=== PATIENT | female | born 1970 | race Caucasian/White ===

== ENCOUNTER 2017-11-29 11:32 | Emergency (ER) | payer SELFPAY ==
[2017-11-29] MEDS ORDERED: LIDOCAINE 5% (700 MG) TRANSDERMAL ADH..PATCH TP ONE (12:34)
[2017-11-29] MEDS ORDERED: DEXAMETHASONE SOD PHOS INJ 10 MG/1 ML VIAL IM ONE (12:34)
--- NOTE | 2017-11-29 12:40 | ER Document Report ---
ED Neck/Back Problem - General Chief Complaint: Back Pain Stated Complaint: FALL/BACK PAIN Time Seen by Provider: 11/29/17 12:18 Mode of Arrival: Ambulatory Information source: Patient Notes: 47-year-old female presented ED for complaint of bruising to the left thigh and increasing pain in the low back since she fell to the porch floor yesterday. She states it hurts to move or walk due to the pain. Patient is alert and oriented respirations are regular need unlabored. Patient is able to speak in full even sentences. Patient states her home medicines are lisinopril 10 mg daily by mouth, Ultram 50 mg nightly by mouth, Neurontin 400 mg daily by mouth, Zoloft 25 mg daily by mouth, and Soma 350 mg 3 times a day as needed. TRAVEL OUTSIDE OF THE [place] IN LAST 30 DAYS: No - HPI Patient complains to provider of: Lower back Onset: Other Where: Home, Outdoors Onset: Chronic Timing: Worse Quality of pain: Sharp Severity: Severe Pain Level: 5 Context: Other - Fell to the floor on the porch yesterday Recent injury: Yes Associated symptoms: Like prior neck/back pain, Radiation to leg, Lower back pain. denies: Fever, Incontinence, Motor loss, Numbness/tingling, Radiation to arm, Radiation to chest, Sensory loss, Sweaty, Unable to urinate, Upper back pain Exacerbated by: Movement of trunk, Sitting position Relieved by: Nothing Similar symptoms previously: Yes Recently seen / treated by doctor: No - Related Data Allergies/Adverse Reactions: ketorolac tromethamine [From Toradol] Allergy (Verified 01/26/16 13:57) morphine [Morphine] Allergy (Verified 01/26/16 13:57) Anxiety naproxen [Naproxen] Allergy (Verified 01/26/16 13:57) Anxiety Past Medical History - General Information source: Patient - Social History Smoking Status: Current Every Day Smoker Cigarette use (# per day): Yes - One third pack per day Chew tobacco use (# tins/day): No Smoking Education Provided: Yes - 4 minutes Frequency of alcohol use: None Drug Abuse: None Lives with: Family Family History: Reviewed & Not Pertinent Patient has suicidal ideation: No Patient has homicidal ideation: No - Past Medical History Cardiac Medical History: Reports: Hx Hypertension Pulmonary Medical History: Reports: None EENT Medical History: Reports: None Neurological Medical History: Reports: None Endocrine Medical History: Reports: None Renal/ Medical History: Reports: None Malignancy Medical History: Reports: None GI Medical History: Reports: None Musculoskeltal Medical History: Reports Hx Arthritis, Reports Hx Musculoskeletal Deformity, Reports Other - Back pain Skin Medical History: Reports None Psychiatric Medical History: Reports: Hx Anxiety, Hx Depression Traumatic Medical History: Reports: None Infectious Medical History: Reports: None Past Surgical History: Reports: Hx Appendectomy, Hx Section, Hx Cholecystectomy - Immunizations Immunizations up to date: Yes Hx Diphtheria, Pertussis, Tetanus Vaccination: Yes Review of Systems - Review of Systems Constitutional: No symptoms reported EENT: No symptoms reported Cardiovascular: No symptoms reported Respiratory: No symptoms reported Gastrointestinal: No symptoms reported. denies: Vomiting, Constipation, Fecal incontinence Genitourinary: No symptoms reported, Incontinence, Retention Female Genitourinary: No symptoms reported Musculoskeletal: Back pain, Muscle pain, Muscle stiffness Skin: No symptoms reported Hematologic/Lymphatic: No symptoms reported Neurological/Psychological: No symptoms reported. denies: Gait changes, Loss of power, Paralysis -: Yes All other systems reviewed and negative Physical Exam - Vital signs Vitals: Temp Pulse Resp BP Pulse Ox 99.3 F 74 20 170/85 H 100 11/29/17 11:49 11/29/17 11:49 11/29/17 11:49 11/29/17 11:49 11/29/17 11:49 Interpretation: Normal - General General appearance: Appears well, Alert - HEENT Head: Normocephalic, Atraumatic Eyes: Normal Pupils: PERRL - Respiratory Respiratory status: No respiratory distress Chest status: Nontender Breath sounds: Normal Chest palpation: Normal - Cardiovascular Rhythm: Regular Heart sounds: Normal auscultation Murmur: No - Abdominal Inspection: Normal Distension: No distension Bowel sounds: Normal Tenderness: Nontender Organomegaly: No organomegaly - Back Back: Normal, Tender, Vertebra tenderness. No: Deformity/step-off, CVA tenderness, Scars, Scoliosis, Wounds - Extremities General upper extremity: Normal inspection, Nontender, Normal color, Normal ROM , Normal temperature General lower extremity: Normal inspection, Nontender, Normal color, Normal ROM , Normal temperature, Normal weight bearing. No: Aurelia's sign - Neurological Neuro grossly intact: Yes Cognition: Normal Orientation: AAOx4 Jak Coma Scale Eye Opening: Spontaneous Barney Coma Scale Verbal: Oriented Jak Coma Scale Motor: Obeys Commands Jak Coma Scale Total: 15 Speech: Normal Cranial nerves: Normal Cerebellar coordination: Normal Motor strength normal: LUE, RUE, LLE, RLE Additional motor exam normals: Equal internship Babinski reflex: Normal (flexor plantar) Sensory: Normal Knee - Reflex grade: 2 = Normal Ankle - Reflex grade: 2 = Normal - Psychological Associated symptoms: Normal affect, Normal mood - Skin Skin Temperature: Warm Skin Moisture: Dry Skin Color: Normal Course - Re-evaluation Re-evalutation: 11/29/17 13:45 After performing a Medical Screening Examination, I estimate there is LOW risk for EXPANDING OR RUPTURED ABDOMINAL AORTIC ANEURYSM, CAUDA EQUINA SYNDROME, EPIDURAL MASS LESION, or HERNIATED DISK CAUSING SEVERE SPINAL STENOSIS, thus I consider the discharge disposition reasonable. I have reevaluated this patient multiple times and no significant life threatening changes are noted. The patient and I have discussed the diagnosis and risks, and we agree with discharging home and close follow-up. We also discussed returning to the Emergency Department immediately if new or worsening symptoms occur with the understanding that symptoms and presentations can change. We have discussed the symptoms which are most concerning (e.g., saddle anesthesia, urinary or bowel incontinence or retention, changing or worsening pain) that necessitate immediate return. X-rays discussed with patient. Written report given to patient. Patient was treated with Lidoderm patch, steroids, and discharged home with prescription for Flexeril. Patient to follow-up with her doctor on the as is scheduled. Patient to continue taking her chronic pain management medicines. - Vital Signs Vital signs: Temp Pulse Resp BP Pulse Ox 98.4 F 71 16 148/99 H 100 11/29/17 14:07 11/29/17 14:07 11/29/17 14:07 11/29/17 14:07 11/29/17 14:07 - Diagnostic Test Radiology reviewed: Image reviewed, Reports reviewed Discharge - Discharge Clinical Impression: Exacerbation of chronic back pain Fall Qualifiers: Encounter type: initial encounter Qualified Code(s): W19.XXXA - Unspecified fall, initial encounter Condition: Stable Disposition: HOME, SELF-CARE Additional Instructions: Chronic Pain Control Stress, inactivity, and depression make pain more severe regardless of the cause of the pain. Stress and poor physical condition can cause pain such as headaches and backache. Relaxation: Rest in a quiet place with your eyes closed for 20 minutes twice daily. Concentrate on a pleasant image, or simply "feel" your breathing. Clear your mind. Stress management: Deal with your "stressors." Either take action, or eliminate the stressor from your life. Don't let things hang over you. Accept those things you can't change. Nutrition: Eat small, balanced meals -- don't skip, don't overeat. Meals should be high-carbohydrate, low-sugar, low-fat. Exercise: Exercise helps painful conditions and eases stress. Get 30 minutes of moderate exercise, five days a week. Do an activity that does not flare your pain. Precautions: Pain which continues to disrupt daily activities, or which changes in nature, requires a medical evaluation. Pain Clinic referral is available. We do not manage chronic pain in the Emergency Department. We will try to appropriately help you through an acute flare of your chronic painful condition , but for on-going chronic pain that does not improve, you will need to see your private doctor or spray i painter. We do not provide repeated medication management of chronic painful conditions. If you wish, we can provide the name of local pain management physicians. Chronic Back Pain Chronic back pain (pain persisting longer than three months) is a common problem. A medical evaluation can look for herniated disc, arthritis, osteoporosis, tumors, and infections. But at least half the time, there's no obvious treatable cause. Anxiety and depression tend to worsen back pain. Ibuprofen or other anti-inflammatory medicine can help. A heating pad, used for 15-20 minutes at a time, can ease pain. For this type of back pain, narcotic medicines should be avoided. Muscle relaxers are rarely helpful unless you're having spasms. Activity is important. Find an aerobic exercise program that your back can tolerate. Too much rest makes back pain worse. Specific back exercises are usually prescribed to strengthen the back and abdominal muscles. Often, a physical therapist can help. Avoid heavy lifting, working while bent over, or standing with both knees straight. Most back pain patients do better with a firm mattress. If new symptoms of a "herniated disc" (radiation of pain, numbness, or tingling down the back of the leg or weakness in the leg) occur, you should be re-examined. STEROID MEDICATION: You have been given a medicine of the cortisone/steroid class. This medication is used to control inflammation or allergy. It is usually only given for a short period of time, until the acute process subsides. There are usually no side effects from short-term use of cortisone-like medications. Some persons feel an increased sense of well-being and are not sleepy at bedtime. Long-term use of cortisone medications is best avoided, unless required for a severe condition. If your condition does not remit, or relapses after the course of corticosteroid medication, you should consult your physician. Stretching Exercises for the Back The physician has recommended that you begin stretching exercises for your back. These are often used even while the back is painful. However, you should notify the physician if the activities seem to increase your pain. PELVIC TILT: Lie flat on your back with knees bent. Tighten your stomach and buttock muscles so it flattens your lower back against the floor. Hold 10 seconds. Repeat 10 times, twice daily. KNEE RAISE: Lying on the back with knees bent, raise one knee to your chest, then the other. Hold both knees against the chest 10 seconds, then lower one knee at a time. Repeat 10 times, twice daily. PARTIAL TRUNK RAISE: Lie face down, arms at your sides. Keeping your waist on the floor, use your arms raise your chest up. Support yourself on your elbows for 30 seconds. Repeat twice daily, increasing the time to two minutes as you recover. MUSCLE RELAXERS: Muscle relaxing medications are usually prescribed for acute muscle spasm or injury to the neck and back. They are often combined with antiinflammatory pain medication for increased relief. You may stop the muscle relaxer when the pain and stiffness have improved. Start the medication again if spasms recur. Muscle relaxers may cause drowsiness, especially with the first dose. Do not operate machinery or drive while under the effects of the medication. Most muscle relaxers last up to 24 hours. Do not combine the medication with alcohol. ICE PACKS: Apply ice packs frequently against the painful area. Many different schedules are recommended, such as "20 minutes on, 20 minutes off" or "one hour ice, two hours rest." If you need to work, you may need to go longer between ice treatments. You should plan to have the area ice packed AT LEAST one fourth of the time. The ice should be applied over the wrap, tape, or splint, or over a layer of cloth -- not directly against the skin. Some ice bags have a built-in cloth and can be put directly on the skin. WARM PACKS: After approximately two days, apply gentle heat (such as a heating pad or hot water bottle) for about 20 to 30 minutes about every two hours -- at least four times daily. Warmth and elevation will help you make a more rapid recovery , and will ease the pain considerably. Do not use HOT heat, and never apply heat for longer than 30 minutes. The continuous heat can invisibly damage skin and muscles -- even when no burn is seen on the surface. Damaged muscles can make you MORE sore. FOLLOW-UP CARE: If you have been referred to a physician for follow-up care, call the physician s office for an appointment as you were instructed or within the next two days. If you experience worsening or a significant change in your symptoms, notify the physician immediately or return to the Emergency Department at any time for re-evaluation. Prescriptions: Cyclobenzaprine HCl [Flexeril 10 mg Tablet] 10 mg PO TIDP PRN #15 tab PRN Reason: Forms: Elevated Blood Pressure, Smoking Cessation Education Referrals: SONA MCWILLIAMS MD [Primary Care Provider] - Follow up as needed
--- NOTE | 2017-11-29 13:20 | RADIOLOGY REPORT (SQ) ---
EXAM DESCRIPTION: L SPINE WHOLE COMPLETED DATE/TIME: 11/29/2017 12:54 pm REASON FOR STUDY: pain low back after falling COMPARISON: Three-way abdomen 08/06/2015 Lumbar spine five views 06/22/2016 NUMBER OF VIEWS: Five views including obliques. TECHNIQUE: AP, lateral, oblique, and sacral radiographic images acquired of the lumbar spine. LIMITATIONS: None. FINDINGS: MINERALIZATION: Normal. SEGMENTATION: Transitional anatomy. Tiny L5-S1 disc space. Four well-developed lumbar vertebral bod ies are present ALIGNMENT: Normal. VERTEBRAE: Maintained height. No fracture or worrisome bone lesion. DISCS: Preserved height. No significant osteophytes or end plate irregularity. POSTERIOR ELEMENTS: Pedicles and facets are intact. No pars defect or posterior arch defects. Facet arthropathy at L3-4 and L4-5 bilaterally. HARDWARE: None in the spine. PARASPINAL SOFT TISSUES: Normal. PELVIS: Intact as visualized. No fractures or worrisome bone lesions. SI joints intact. 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 L3-4 and L4-5 facet arthropathy. TECHNICAL DOCUMENTATION: JOB ID: [id number]- All Rights Reserved Reading location - IP/workstation name: [email or web address]
[2017-11-29 14:12] VITALS: BP 148/99
== END 2017-11-29 14:10 | disposition home or self-care (01) ==
LOC: ER 11:32
DX: M54.5 Low back pain (principal); W17.89XA Other fall from one level to another, initial encounter; Y92.008 Other place in unspecified non-institutional (private) residence as the place of occurrence of the external cause; G89.29 Other chronic pain; I10 Essential (primary) hypertension; M48.9 Spondylopathy, unspecified; F17.210 Nicotine dependence, cigarettes, uncomplicated; Z71.6 Tobacco abuse counseling; Z79.899 Other long term (current) drug therapy; Z79.891 Long term (current) use of opiate analgesic; Z88.5 Allergy status to narcotic agent; Z88.8 Allergy status to other drugs, medicaments and biological substances
CPT/HCPCS: 99406; 99283; 96372; 72110; J1100

== ENCOUNTER 2018-01-04 10:04 | Emergency (ER) | payer SELFPAY ==
[2018-01-04] MEDS ORDERED: HYDROCODONE/ACETAMINOPHEN 10-325 MG TABLET PO ONE (11:01)
--- NOTE | 2018-01-04 11:08 | ER Document Report ---
ED Hand/Wrist Injury - General Chief Complaint: Thumb Injury Stated Complaint: THUMB INJURY Time Seen by Provider: 01/04/18 10:30 Mode of Arrival: Ambulatory Information source: Patient Notes: 37-year-old female presented to ED for complaint of left thumb pain. She states she was trying to get up out of bed and put her hand down leaned on her thumb and the thumb bent backwards causing an injury bruising and swelling. She states she does not have any history of any injuries to this hand. She is tearful while discussing this injury. She is alert and oriented respirations regular and unlabored speaks with full sentences and walks with a even steady gait. TRAVEL OUTSIDE OF THE [place] IN LAST 30 DAYS: No - HPI Injury to: Thumb Onset: This morning Where: Home, Indoors Timing: Still present Quality of pain: Throbbing Severity: Severe Pain Level: 5 Context: Swelling, Other - Thumb backwards - Related Data Allergies/Adverse Reactions: ketorolac tromethamine [From Toradol] Allergy (Verified 01/04/18 10:06) morphine [Morphine] Allergy (Verified 01/04/18 10:06) Anxiety naproxen [Naproxen] Allergy (Verified 01/04/18 10:06) Anxiety Past Medical History - General Information source: Patient - Social History Smoking Status: Current Some Day Smoker Cigarette use (# per day): No Chew tobacco use (# tins/day): No Smoking Education Provided: No Frequency of alcohol use: None Drug Abuse: None Lives with: Family Family History: Reviewed & Not Pertinent Patient has suicidal ideation: No Patient has homicidal ideation: No - Past Medical History Cardiac Medical History: Reports: Hx Hypertension Pulmonary Medical History: Reports: None EENT Medical History: Reports: None Neurological Medical History: Reports: None Endocrine Medical History: Reports: Hx Diabetes Mellitus Type 2 Renal/ Medical History: Reports: None Malignancy Medical History: Reports: None GI Medical History: Reports: None Musculoskeltal Medical History: Reports Hx Arthritis, Reports Hx Musculoskeletal Deformity Skin Medical History: Reports None Psychiatric Medical History: Reports: Hx Anxiety, Hx Depression Traumatic Medical History: Reports: None Surgical Hx: Negative Past Surgical History: Reports: Hx Appendectomy, Hx Section, Hx Cholecystectomy - Immunizations Immunizations up to date: Yes Hx Diphtheria, Pertussis, Tetanus Vaccination: Yes Review of Systems - Review of Systems Musculoskeletal: Other - Injury to left thumb when she went to get up out of bed she pushed her thumb into the mattress and her thumb bent completely backwards causing pain swelling and bruising to the left thumb Physical Exam - Vital signs Vitals: Temp Pulse Resp BP Pulse Ox 98.6 F 67 18 158/84 H 100 01/04/18 10:09 01/04/18 10:09 01/04/18 10:01/04/18 10:01/04/18 10:09 - Extremities General upper extremity: Normal color, Normal ROM, Normal temperature General lower extremity: Normal inspection, Nontender, Normal color, Normal ROM , Normal temperature, Normal weight bearing. No: Aurelia's sign Hand: Tender, Ecchymosis, No evidence of human bite, No evidence of FB, Swelling , Other - Injury to left thumb when she went to get up out of bed she pushed her thumb into the mattress and her thumb bent completely backwards causing pain swelling and bruising to the left thumb. No: Abrasion, Deformity, Dislocation, Instability, Laceration, Nail injury, Tendon deficit Course - Re-evaluation Re-evalutation: 01/04/18 11:31 X-rays discussed with patient and . Written report of x-rays given to patient to follow-up with her primary doctor. Finger splint was applied to the thumb for comfort. Patient was instructed on use of elevation and ice and Tylenol. Patient was given one [place] while in the emergency room due to her pain. She was told to follow-up with her primary doctor if she needed any more narcotics. Patient and verbalized understanding of discharge instructions and agreement with treatment plan. - Vital Signs Vital signs: Temp Pulse Resp BP Pulse Ox 98.6 F 67 18 158/84 H 100 01/04/18 10:01/04/18 10:01/04/18 10:01/04/18 10:01/04/18 10:09 - Diagnostic Test Radiology reviewed: Image reviewed, Reports reviewed Procedures - Immobilization Left Finger Thumb Time completed: 11:25 Immobilizer type: Finger protection Performed by: PCT Post-Proc Neuro Vasc Exam: Normal Alignment checked and good: Yes Discharge - Discharge Clinical Impression: Left thumb sprain Qualifiers: Encounter type: initial encounter Sprain of finger site: unspecified site Qualified Code(s): S6.602S - Unspecified sprain of left thumb, initial encounter Condition: Stable Disposition: HOME, SELF-CARE Additional Instructions: SPRAIN: Your injury is a sprain. A sprain results from stretching or tearing of the ligaments, usually from a twisting injury. The ligaments will require time and protection in order to heal properly. Many sprains are quite disabling and should be taken seriously. The usual initial treatment of sprains is cold packs, elevation, and rest of the injured area. Your physician has assessed the seriousness of your ligament injury, and has outlined a treatment plan. Understand that this treatment may change, depending on how you progress. If a re-examination was recommended, it is important that you follow up as instructed. Call the doctor any time if there is severe pain, numbness, or loss of function in the injured area. SPLINT PRECAUTIONS: A splint has been placed. This will protect the area while healing begins. Your problem does NOT normally require a cast. It MUST, however, be held still! Keep the splint on ALL THE TIME until instructed to remove it by the doctor. As you begin to use the area, be careful. You shouldn't do anything which causes discomfort -- you may disturb the injury even with the splint in place. After the initial period of rest and elevation, if splint does not prevent pain when you move, come back. You may require placement of a different splint , or a cast. If there is unexpected severe pain, or numbness, discoloration, or swelling beyond the splint, you should return at once. If you feel that the splint has broken or become loose, come back. ICE & ELEVATION: Apply ice packs frequently against the painful area. Many different schedules are recommended, such as "20 minutes on, 20 minutes off" or "one hour ice, two hours rest." If you need to work, you may need to go longer between ice treatments. You should plan to have the area ice packed AT LEAST one- fourth of the time. The ice should be applied over the wrap, tape, or splint, or over a layer of cloth -- not directly against the skin. Some ice bags have a built-in cloth and can be put directly on the skin. Your injured part should be elevated as much as possible over the next 48 hours. Try to keep the injury above the level of the heart. Avoid use of the injured area. Elevation and rest will decrease the swelling. ORAL NARCOTIC MEDICATION: You have been given a norco for pain control today no prescription will be sent home. This medication is a narcotic. It's best taken with food, as nausea can result if taken on an empty stomach. Don't operate machinery or drive within six hours of taking this medication. Do not combine this medicine with alcohol, or with any medication which can cause sedation (such as cold tablets or sleeping pills) unless you get permission from the physician. Narcotics tend to cause constipation. If possible, drink plenty of fluids and eat a diet high in fiber and fruits. Please be aware that prescription narcotics also have the potential for abuse. People become addicted to these medications because of the general sense of wellbeing that they induce. This feeling along with a significant reduction in tension, anxiety, and aggression provides a stimulating seductive quality to these drugs. Once your pain is under control, we encourage you to discard your unused narcotics. FOLLOW-UP CARE: If you have been referred to a physician for follow-up care, call the physician s office for an appointment as you were instructed or within the next two days. If you experience worsening or a significant change in your symptoms, notify the physician immediately or return to the Emergency Department at any time for re-evaluation. Forms: Smoking Cessation Education Referrals: SONA MCWILLIAMS MD [Primary Care Provider] - Follow up tomorrow
--- NOTE | 2018-01-04 11:17 | RADIOLOGY REPORT (SQ) ---
EXAM DESCRIPTION: HAND LEFT 3 VIEWS COMPLETED DATE/TIME: 01/04/2018 10:51 am REASON FOR STUDY: thumb injury COMPARISON: None. EXAM PARAMETERS: NUMBER OF VIEWS: Three views. TECHNIQUE: AP, lateral and oblique radiographic images acquired of the left hand. LIMITATIONS: None. FINDINGS: MINERALIZATION: Normal. BONES: No acute fracture or dislocation. No worrisome bone lesions. JOINTS: No effusions. SOFT TISSUES: No soft tissue swelling. No foreign body. OTHER: No other significant finding. IMPRESSION: NEGATIVE STUDY OF THE LEFT HAND. NO RADIOGRAPHIC EVIDENCE OF ACUTE INJURY. TECHNICAL DOCUMENTATION: JOB ID: [id number] [employer]- All Rights Reserved Reading location - IP/workstation name: [email or web address]
[2018-01-04 11:29] VITALS: BP 150/86
== END 2018-01-04 11:30 | disposition home or self-care (01) ==
LOC: ER 10:04
DX: S63.602A Unspecified sprain of left thumb, initial encounter (principal); X50.0XXA Overexertion from strenuous movement or load, initial encounter; Y92.003 Bedroom of unspecified non-institutional (private) residence as the place of occurrence of the external cause; F17.200 Nicotine dependence, unspecified, uncomplicated; I10 Essential (primary) hypertension; E11.9 Type 2 diabetes mellitus without complications; Z88.6 Allergy status to analgesic agent; Z90.49 Acquired absence of other specified parts of digestive tract
CPT/HCPCS: 99283

== ENCOUNTER 2018-08-02 09:51 | Emergency (ER) | payer SELFPAY ==
[2018-08-02 10:25] VITALS: BP 134/76
[2018-08-02] MEDS ORDERED: HYDROMORPHONE HCL INJ/PF 2 MG/ML AMPULE IM ONE (10:56)
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
[2018-08-02] MEDS ORDERED: BACITRACIN ZINC OINTMENT 15 GM TP ONE (11:32)
== END 2018-08-02 11:59 | disposition home or self-care (01) ==
LOC: ER 09:51
DX: T25.321A Burn of third degree of right foot, initial encounter (principal); X12.XXXA Contact with other hot fluids, initial encounter; I10 Essential (primary) hypertension; E11.9 Type 2 diabetes mellitus without complications; F17.200 Nicotine dependence, unspecified, uncomplicated; Z90.49 Acquired absence of other specified parts of digestive tract
CPT/HCPCS: 99283; 96372; J3490; J1170

== ENCOUNTER 2020-01-28 15:29 | Emergency (ER) | payer SELFPAY ==
[2020-01-28] MEDS ORDERED: GLUCAGON,HUMAN RECOMB 1 MG INJ IM ONE (15:38)
--- NOTE | 2020-01-28 15:42 | ER Document Report ---
ED Medical Screen (RME) - General Chief Complaint: Choked/Choking Stated Complaint: CHOKING Time Seen by Provider: 01/28/20 15:35 Primary Care Provider: SONA MCWILLIAMS MD [Primary Care Provider] - Follow up as needed Mode of Arrival: Medic Information source: Patient Notes: HPI; 49-year-old female past medical history significant for hypertension presents to the emergency room after choking on a chicken popper that got stuck in her throat at home. States tried doing the Heimlich maneuver at home without relief. States she is unable to swallow. Has been vomiting. Is able to talk in full sentences. No history of previous foreign bodies. PE: Alert and oriented x3. Moderate distress noted. Lungs: Clear to auscultation without rales, rhonchi, wheezes. Heart: Regular rate and rhythm without murmurs, rubs, gallops. Patient is able to talk in full sentences. Unable to swallow her saliva. I have greeted and performed a rapid initial assessment of this patient. A comprehensive ED assessment and evaluation of the patient, analysis of test results and completion of the medical decision making process will be conducted by additional ED providers. I have specifically instructed the patient or family members with the patient to immediately return to any nursing staff should anything change in the patient's condition or with their chief complaint. TRAVEL OUTSIDE OF THE [place] IN LAST 30 DAYS: No - Related Data Allergies/Adverse Reactions: ketorolac tromethamine [From Toradol] Allergy (Verified 08/02/18 09:52) morphine [Morphine] Allergy (Verified 08/02/18 09:52) Anxiety naproxen [Naproxen] Allergy (Verified 08/02/18 09:52) Anxiety Past Medical History - Social History Family history: None - Past Medical History Cardiac Medical History: Reports: Hx Hypertension Endocrine Medical History: Reports: Hx Diabetes Mellitus Type 2 Renal/ Medical History: Denies: Hx Peritoneal Dialysis Musculoskeltal Medical History: Reports Hx Arthritis, Reports Hx Musculoskeletal Deformity Psychiatric Medical History: Reports: Hx Anxiety, Hx Depression Past Surgical History: Reports: Hx Appendectomy, Hx Section, Hx Cholecystectomy - Immunizations Immunizations up to date: Yes Hx Diphtheria, Pertussis, Tetanus Vaccination: Yes Physical Exam - Vital signs Vitals: Temp Pulse Resp BP Pulse Ox 98.0 F 79 20 124/53 L 100 01/28/20 15:33 01/28/20 15:33 01/28/20 15:33 01/28/20 15:33 01/28/20 15:33 Course - Vital Signs Vital signs: Temp Pulse Resp BP Pulse Ox 98.0 F 79 20 124/53 L 100 01/28/20 15:33 01/28/20 15:33 01/28/20 15:33 01/28/20 15:33 01/28/20 15:33 Doctor's Discharge - Discharge Referrals: SONA MCWILLIAMS MD [Primary Care Provider] - Follow up as needed
[2020-01-28] MEDS ORDERED: NORMAL SALINE 1000 ML 1,000 ML IV ONE (15:55)
[2020-01-28] MEDS ORDERED: ONDANSETRON HCL INJ/PF 4 MG/2 ML SDV IV ONE (15:55)
--- NOTE | 2020-01-28 15:58 | ER Document Report ---
ED General - General Chief Complaint: Choked/Choking Stated Complaint: CHOKING Time Seen by Provider: 01/28/20 15:35 Primary Care Provider: SONA MCWILLIAMS MD [Primary Care Provider] - Follow up as needed Mode of Arrival: Medic TRAVEL OUTSIDE OF THE [place] IN LAST 30 DAYS: No - HPI Patient complains to provider of: choking Notes: 49 y/o w/ pmh of htn and anxiety presenting to the ED for evaluation of choking she states she was eating a chicken popper and felt it get stuck in her throat since then, she has had significant nausea/vomiting or spitting of anything she puts in her mouth and pretty significant discomfort she states prior to eating the chicken popper she felt fine she has never had endoscopy or had an episode where something was stuck in her throat she denies any difficulty breathing - Related Data Allergies/Adverse Reactions: ketorolac tromethamine [From Toradol] Allergy (Verified 01/28/20 16:06) morphine [Morphine] Allergy (Verified 01/28/20 16:06) Anxiety naproxen [Naproxen] Allergy (Verified 01/28/20 16:06) Anxiety Past Medical History - General Information source: Patient - Social History Smoking Status: Never Smoker Family History: Reviewed & Not Pertinent - Past Medical History Cardiac Medical History: Reports: Hx Hypertension Endocrine Medical History: Reports: Hx Diabetes Mellitus Type 2 Renal/ Medical History: Denies: Hx Peritoneal Dialysis Musculoskeletal Medical History: Reports Hx Arthritis, Reports Hx Musculoskeletal Deformity Psychiatric Medical History: Reports: Hx Anxiety, Hx Depression Past Surgical History: Reports: Hx Appendectomy, Hx Section, Hx Cholecystectomy - Immunizations Immunizations up to date: Yes Hx Diphtheria, Pertussis, Tetanus Vaccination: Yes Review of Systems - Review of Systems Constitutional: No symptoms reported EENT: No symptoms reported Cardiovascular: No symptoms reported Respiratory: No symptoms reported Gastrointestinal: Nausea, Other - food stuck in throat Genitourinary: No symptoms reported Female Genitourinary: No symptoms reported Musculoskeletal: No symptoms reported Skin: No symptoms reported Hematologic/Lymphatic: No symptoms reported Neurological/Psychological: No symptoms reported Physical Exam - Vital signs Vitals: Temp Pulse Resp BP Pulse Ox 98.0 F 79 20 124/53 L 100 01/28/20 15:33 01/28/20 15:33 01/28/20 15:33 01/28/20 15:33 01/28/20 15:33 Interpretation: Normal - General General appearance: Alert, Anxious In distress: Mild - HEENT Head: Normocephalic, Atraumatic Eyes: Normal Pupils: PERRL - Respiratory Respiratory status: No respiratory distress Chest status: Nontender Breath sounds: Normal Chest palpation: Normal - Cardiovascular Rhythm: Regular Heart sounds: Normal auscultation Murmur: No - Abdominal Inspection: Normal Distension: No distension Bowel sounds: Normal Tenderness: Nontender Organomegaly: No organomegaly - Back Back: Normal, Nontender - Extremities General upper extremity: Normal inspection, Nontender, Normal color, Normal ROM, Normal temperature General lower extremity: Normal inspection, Nontender, Normal color, Normal ROM, Normal temperature, Normal weight bearing. No: Aurelia's sign - Neurological Neuro grossly intact: Yes Cognition: Normal Orientation: AAOx4 Jak Coma Scale Eye Opening: Spontaneous Butler Coma Scale Verbal: Oriented Butler Coma Scale Motor: Obeys Commands Jak Coma Scale Total: 15 Speech: Normal Motor strength normal: LUE, RUE, LLE, RLE Sensory: Normal - Psychological Associated symptoms: Normal affect, Normal mood - Skin Skin Temperature: Warm Skin Moisture: Dry Skin Color: Normal Course - Re-evaluation Re-evalutation: 01/28/20 15:58 patient presents with hi clinical suspicion for esophageal food impaction will try glucagon and zofran and then reassess patient will require transfer if emergent scope is necessary as no ability to do this at our facility this weekend. 01/28/20 16:28 patient w/ no response to meds in ED. [facility] transfer calledDonald Gonzalez in transfer center given demographics 01/28/20 16:53 patient subsequently vomited her food impaction and now has no symptoms transfer cancelled and patient tolerating PO at time of dc I have counseled on need for outpatient GI follow up for endoscopy and she acknowledges understanding of this plan return precautions reviewed prior to dc - Vital Signs Vital signs: Temp Pulse Resp BP Pulse Ox 98.0 F 79 20 124/53 L 100 01/28/20 15:33 01/28/20 15:33 01/28/20 15:33 01/28/20 15:33 01/28/20 15:33 - Laboratory Result Diagrams: 01/28/20 15:59 07/19/20 15:59 Laboratory results interpreted by me: 01/28/20 01/28/20 15:59 15:59 MCV 98 H RDW 14.4 H Calcium 10.3 H Discharge - Discharge Clinical Impression: Food impaction of esophagus Qualifiers: Encounter type: initial encounter Qualified Code(s): T18.128A - Food in esophagus causing other injury, initial encounter Condition: Stable Disposition: HOME, SELF-CARE Instructions: Esophageal Foreign Body ([facility]), Esophageal Food Impaction ([facility]) Additional Instructions: Please follow up with a GI specialist for endoscopy to evaluate the cause of your symptoms further This will likely be a recurrent thing for you until endoscopy is completed Be sure to chew your food up and take small bites. If possible, avoid beef, pork or poultry Return to the ED with worsening symptoms or concerns Referrals: SONA MCWILLIAMS MD [Primary Care Provider] - Follow up as needed GIANNI GONZALEZ MD [ACTIVE STAFF] - Follow up as needed Print Language: Macedonian
[2020-01-28] MEDS ORDERED: METOCLOPRAMIDE HCL INJ/PF 10 MG/2 ML SDV IV ONE (16:01)
--- NOTE | 2020-01-28 16:06 | RADIOLOGY REPORT (SQ) ---
EXAM DESCRIPTION: SOFT TISSUE NECK IMAGES COMPLETED DATE/TIME: 01/28/2020 3:51 pm REASON FOR STUDY: foreign body COMPARISON: Cervical spine x-ray 06/22/2016, 06/22/2014. NUMBER OF VIEWS: Two views. TECHNIQUE: AP and lateral radiographic image of the soft tissues of the neck. LIMITATIONS: None. FINDINGS: EPIGLOTTIS: Contour normal. PREVERTEBRAL SOFT TISSUES: No soft tissue swelling. BONES: No significant findings. LUNG APICES: Normal. OTHER: The palatine tonsils appear enlarged. A radiopaque earring is noted at the right ear. Other reyes, no radiopaque foreign body is identified at the soft tissues of the neck. IMPRESSION: No radiopaque foreign body at the soft tissues of the neck. Enlarged palatine tonsils, please correlate with clinical exam. TECHNICAL DOCUMENTATION: JOB ID: [id number] 2010 [employer]- All Rights Reserved Reading location - IP/workstation name: [email or web address]
[2020-01-28] MEDS ORDERED: LORAZEPAM INJ 2 MG/1 ML VIAL IV ONE (16:16)
[2020-01-28 16:19] LABS: ABSOLUTE EOSINOPHILS # (AUTO) 0.1 10^3/uL (0.0-0.6); ABSOLUTE LYMPHOCYTES (AUTO) 1.2 10^3/uL (0.5-4.7); ABSOLUTE MONOCYTES (AUTO) 0.6 10^3/uL (0.1-1.4); ABSOLUTE NEUT (AUTO) 5.8 10^3/uL (1.7-8.2); BASOPHILS % (AUTO) 0.4 % (0-2); EOSINOPHILS % (AUTO) 1.6 % (0-6); HEMATOCRIT 37.2 % (36.0-47.0); HEMOGLOBIN 12.6 g/dL (12.0-15.5); LYMPHOCYTES % (AUTO) 15.2 % (13-45); MEAN CORPUSCULAR HGB CONC 33.7 g/dL (32.0-36.0); MEAN CORPUSCULAR VOLUME 98 fl (80-97); MONOCYTES % (AUTO) 7.6 % (3-13); PLATELET COUNT 282 10^3/uL (150-450); RED CELL DISTRIBUTION WIDTH 14.4 % (11.5-14.0); SEGMENTED NEUTROPHILS % (AUTO) 75.2 % (42-78); TOTAL CELLS COUNTED % (AUTO) 100 %; WHITE BLOOD COUNT 7.7 10^3/uL (4.0-10.5)
[2020-01-28 16:36] LABS: ANION GAP 6 (5-19); BLOOD UREA NITROGEN 13 mg/dL (7-20); CALCIUM 10.3 mg/dL (8.4-10.2); CARBON DIOXIDE 28 mmol/L (22-30); CHLORIDE 105 mmol/L (98-107); GLUCOSE 103 mg/dL (75-110); POTASSIUM 3.9 mmol/L (3.6-5.0)
[2020-01-28 17:16] VITALS: BP 126/66
== END 2020-01-28 17:06 | disposition home or self-care (01) ==
LOC: ER 15:29
DX: T18.128A Food in esophagus causing other injury, initial encounter (principal); X58.XXXA Exposure to other specified factors, initial encounter; R11.2 Nausea with vomiting, unspecified; I10 Essential (primary) hypertension; E11.9 Type 2 diabetes mellitus without complications; Z88.8 Allergy status to other drugs, medicaments and biological substances; Z88.6 Allergy status to analgesic agent; Z88.5 Allergy status to narcotic agent
CPT/HCPCS: 99284; 96372; 96361; 96374; 96375; 36415; 85025; 80048; 70360; J1610; J2765; J2405; J7030

== ENCOUNTER 2020-08-05 16:14 | Emergency (ER) | payer SELFPAY ==
--- NOTE | 2020-08-05 16:45 | ER Document Report ---
ED Medical Screen (RME) - General Chief Complaint: Cough Stated Complaint: COUGH Time Seen by Provider: 08/05/20 16:33 Primary Care Provider: SONA MCWILLIAMS MD [Primary Care Provider] - Follow up as needed TRAVEL OUTSIDE OF THE [place] IN LAST 30 DAYS: No - HPI Notes: Patient is a 50-year-old female with history of HTN who presents with shortness of breath and cough that began last night. Patient reports generalized weakness, body aches, and diarrhea but denies sore throat, chest pain, fever, and vomiting. Patient denies any known sick contacts or potential COVID-19 expo sures. - Related Data Allergies/Adverse Reactions: ketorolac tromethamine [From Toradol] Allergy (Verified 01/28/20 16:06) morphine [Morphine] Allergy (Verified 01/28/20 16:06) Anxiety naproxen [Naproxen] Allergy (Verified 01/28/20 16:06) Anxiety Past Medical History - Social History Family history: None - Past Medical History Cardiac Medical History: Reports: Hx Hypertension Endocrine Medical History: Reports: Hx Diabetes Mellitus Type 2 Renal/ Medical History: Denies: Hx Peritoneal Dialysis Musculoskeltal Medical History: Reports Hx Arthritis, Reports Hx Musculoskeletal Deformity Psychiatric Medical History: Reports: Hx Anxiety, Hx Depression Past Surgical History: Reports: Hx Appendectomy, Hx Section, Hx Cholecystectomy - Immunizations Immunizations up to date: Yes Hx Diphtheria, Pertussis, Tetanus Vaccination: Yes Physical Exam - Vital signs Vitals: Temp Pulse Resp BP Pulse Ox 98.4 F 100 22 H 144/75 H 95 08/05/20 16:19 08/05/20 16:19 08/05/20 16:19 08/05/20 16:19 08/05/20 16:19 - Respiratory Respiratory status: Labored Breath sounds: Normal Course - Re-evaluation Re-evalutation: I have greeted and performed a rapid initial assessment of this patient. A comprehensive ED assessment and evaluation of the patient, analysis of test results and completion of medical decision making process will be conducted by an additional ED providers. - Vital Signs Vital signs: Temp Pulse Resp BP Pulse Ox 98.4 F 100 22 H 144/75 H 95 08/05/20 16:19 08/05/20 16:19 08/05/20 16:19 08/05/20 16:19 08/05/20 16:19 Doctor's Discharge - Discharge Referrals: SONA MCWILLIAMS MD [Primary Care Provider] - Follow up as needed
--- NOTE | 2020-08-05 17:06 | RADIOLOGY REPORT (SQ) ---
EXAM DESCRIPTION: CHEST SINGLE VIEW IMAGES COMPLETED DATE/TIME: 08/05/2020 4:52 pm REASON FOR STUDY: shortness of breath COMPARISON: 03/03/2015. EXAM PARAMETERS: NUMBER OF VIEWS: One view. TECHNIQUE: Single frontal radiographic view of the chest acquired. RADIATION DOSE: NA LIMITATIONS: None. FINDINGS: LUNGS AND PLEURA: No opacities, masses or pneumothorax. No pleural effusion. MEDIASTINUM AND HILAR STRUCTURES: No masses. Contour normal. HEART AND VASCULAR STRUCTURES: Heart normal in size. Normal vasculature. BONES: No acute findings. HARDWARE: None in the chest. OTHER: No other significant finding. IMPRESSION: NO ACUTE RADIOGRAPHIC FINDING IN THE CHEST. TECHNICAL DOCUMENTATION: JOB ID: [id number] 2010 [employer]- All Rights Reserved Reading location - IP/workstation name: [email or web address]
[2020-08-05] MEDS ORDERED: IPRATROPIUM/ALBUTEROL 0.5-2.5 MG/3 ML AMPUL NEB ONE (17:34)
[2020-08-05] MEDS ORDERED: PREDNISONE 20 MG TABLET PO ONE (17:34)
[2020-08-05] MEDS: ALBUTEROL SULFATE 0.083% NEB 2.5 MG/3 ML AMPUL NEB SCH ×2 (17:37→18:18)
[2020-08-05 18:05] LABS: ABSOLUTE EOSINOPHILS # (AUTO) 0.1 10^3/uL (0.0-0.6); ABSOLUTE MONOCYTES (AUTO) 0.6 10^3/uL (0.1-1.4); ABSOLUTE NEUT (AUTO) 12.6 10^3/uL (1.7-8.2); BASOPHILS % (AUTO) 0.3 % (0-2); EOSINOPHILS % (AUTO) 0.4 % (0-6); HEMATOCRIT 35.7 % (36.0-47.0); HEMOGLOBIN 12.2 g/dL (12.0-15.5); LYMPHOCYTES % (AUTO) 6.9 % (13-45); MEAN CORPUSCULAR HEMOGLOBIN 32.3 pg (27.0-33.4); MEAN CORPUSCULAR HGB CONC 34.1 g/dL (32.0-36.0); MEAN CORPUSCULAR VOLUME 95 fl (80-97); MONOCYTES % (AUTO) 4.2 % (3-13); PLATELET COUNT 280 10^3/uL (150-450); RED BLOOD COUNT 3.77 10^6/uL (3.72-5.28); RED CELL DISTRIBUTION WIDTH 13.4 % (11.5-14.0); SEGMENTED NEUTROPHILS % (AUTO) 88.2 % (42-78); TOTAL CELLS COUNTED % (AUTO) 100 %; WHITE BLOOD COUNT 14.2 10^3/uL (4.0-10.5)
[2020-08-05 18:22] LABS: A TYPE INFLUENZA AG NEGATIVE (NEGATIVE); B INFLUENZA AG NEGATIVE (NEGATIVE)
[2020-08-05 18:28] LABS: ALBUMIN 4.3 g/dL (3.5-5.0); ALKALINE PHOSPHATASE 83 U/L (38-126); ANION GAP 7 (5-19); ASPARTATE AMINO TRANSFERASE 22 U/L (14-36); BILIRUBIN,DIRECT 0.2 mg/dL (0.0-0.4); BILIRUBIN,TOTAL 0.4 mg/dL (0.2-1.3); BLOOD UREA NITROGEN 14 mg/dL (7-20); CALCIUM 9.8 mg/dL (8.4-10.2); CARBON DIOXIDE 26 mmol/L (22-30); CHLORIDE 105 mmol/L (98-107); GLUCOSE 110 mg/dL (75-110); POTASSIUM 3.7 mmol/L (3.6-5.0); TOTAL PROTEIN 8.2 g/dL (6.3-8.2)
[2020-08-05] MEDS ORDERED: NORMAL SALINE 1000 ML 1,000 ML IV ONE (20:19)
[2020-08-05] MEDS ORDERED: TRAMADOL HCL 50 MG TABLET PO ONE (20:20)
--- NOTE | 2020-08-05 20:31 | ER Document Report ---
ED Respiratory Problem - General Chief Complaint: Shortness Of Breath Stated Complaint: COUGH Time Seen by Provider: 08/05/20 16:33 Primary Care Provider: SONA MCWILLIAMS MD [Primary Care Provider] - Follow up as needed Mode of Arrival: Ambulatory Information source: Patient Notes: 50-year-old female presented to ED for complaint of shortness of breath cough congestion very anxious with generalized body aches headaches and diarrhea. She denies chest pain shortness of breath fever or vomiting. She states she does not know of any but he had Covid that she has been around. She is alert and oriented very anxious hyperventilating. She was seen in triage and given prednisone 1 DuoNeb and 2 albuterol nebs. She does have very minimal wheezes still. She denies any history of asthma or pneumonia but states she does have a history of bronchitis in the past. She does have a history listed of having diabetes type 2 which she states she has never had diabetes. She does have anxiety and depression. She is on chronic pain management with tramadol from her primary care doctor but has not had any tonight and is hurting all over. She did have a chest x-ray completed in triage which showed no acute processes she did have a Covid test started and her influenza test is negative. Patient was treated with a liter of fluids, a dose of her tramadol and see if I can get her more comfortable and then discharge as a person under investigation. Constitutional: Negative for fever. HENT: Negative for sore throat. Eyes: Negative for visual changes. Cardiovascular: Negative for chest pain. Respiratory: Short of breath cough congestion Gastrointestinal: Diarrhea but no abdominal pain Genitourinary: Negative for dysuria. Musculoskeletal: Generalized body aches Skin: Negative for rash. Neurological: Negative for headaches, weakness or numbness. 10 point ROS negative except as marked above and in HPI. VITAL SIGNS: Within normal limits. GENERAL: No acute distress, non-toxic appearance. HEAD: Normal with no signs of head trauma. EYES: PERRLA, EOMI, conjunctiva normal, no discharge. EARS: Hearing grossly intact. NOSE: Normal. THROAT: Oropharynx is normal. NECK: Normal range of motion, no tenderness, supple, no lymphadenopathy, No adenopathy, no JVD. CHEST: Patient is short of breath tachypneic and O2 sat 96% respirations 42 very anxious with very minimal wheezes after her 3 nebs will give fluids. Pain medicine received when she calls them if her wheezing improves and then reassess. CARDIAC: Regular rate and rhythm. S1 and S2, without murmurs, gallops, or rubs. VASCULAR: No Edema. Peripheral pulses normal and equal in all extremities. ABDOMEN: Normal and soft with no tenderness, no masses or pulsatile masses. GASTROINTESTINAL: Bowel sounds normal GENITOURINARY: Normal, No tenderness LYMPATHTIC: No lymphadenopathy noted. MUSCULOSKELETAL: Good range of motion of all major joints. Extremities without clubbing, cyanosis or edema. NEUROLOGICAL: Alert and oriented x 3. No focal sensory or strength deficits. Speech normal. Follows commands appropriately. PSYCHIATRIC: Normal Affect, judgement and mood. SKIN: Normal appearance with no rashes or lesions. TRAVEL OUTSIDE OF THE [place] IN LAST 30 DAYS: No - HPI Patient complains to provider of: Cough, Short of breath Onset: Yesterday Duration: Continuous Initiating Event: URI Quality of pain: Achy Severity: Moderate Pain Level: 2 Context: Smoker Short of Breath: Mild Cough: Nonproductive Sputum amount: None Associated symptoms: Cough, PND, Runny nose, Short of breath, Wheezing, Other - Body aches Similar symptoms previously: Yes Recently seen / treated by doctor: No - Related Data Allergies/Adverse Reactions: ketorolac tromethamine [From Toradol] Allergy (Verified 01/28/20 16:06) morphine [Morphine] Allergy (Verified 01/28/20 16:06) Anxiety naproxen [Naproxen] Allergy (Verified 01/28/20 16:06) Anxiety Home Medications: lisinopril Past Medical History - General Information source: Patient - Social History Smoking Status: Current Every Day Smoker Cigarette use (# per day): Yes - Pack per day Smoking Education Provided: Yes - 2 minutes Frequency of alcohol use: None Drug Abuse: None Lives with: Family Family History: Reviewed & Not Pertinent Patient has suicidal ideation: No Patient has homicidal ideation: No - Past Medical History Cardiac Medical History: Reports: Hx Hypertension Pulmonary Medical History: Reports: Hx Bronchitis EENT Medical History: Reports: None Neurological Medical History: Reports: None Endocrine Medical History: Reports: Hx Diabetes Mellitus Type 2 Renal/ Medical History: Reports: None Malignancy Medical History: Reports: None GI Medical History: Reports: None Musculoskeletal Medical History: Reports Hx Arthritis, Reports Hx Musculoskeletal Deformity Skin Medical History: Reports None Psychiatric Medical History: Reports: Hx Anxiety, Hx Depression Traumatic Medical History: Reports: None Infectious Medical History: Reports: None Past Surgical History: Reports: Hx Appendectomy, Hx Section, Hx Cholecystectomy - Immunizations Immunizations up to date: Yes Hx Diphtheria, Pertussis, Tetanus Vaccination: Yes Physical Exam - Vital signs Vitals: Temp Pulse Resp BP Pulse Ox 98.4 F 100 22 H 144/75 H 95 08/05/20 16:19 08/05/20 16:19 08/05/20 16:19 08/05/20 16:19 08/05/20 16:19 Course - Vital Signs Vital signs: Temp Pulse Resp BP Pulse Ox 98.6 F 100 30 H 134/53 H 97 08/05/20 22:24 08/05/20 16:19 08/05/20 22:01 08/05/20 22:01 08/05/20 22:01 - Laboratory Results Result Diagrams: 08/05/20 17:43 08/05/20 17:43 Laboratory Results Interpreted: 08/05/20 17:43 WBC 14.2 H Hct 35.7 L Lymph % (Auto) 6.9 L Absolute Neuts (auto) 12.6 H Seg Neutrophils % 88.2 H Critical Laboratory Results Reviewed: No Critical Results - Radiology Results Critical Radiology Results Reviewed: No Critical Results Discharge - Discharge Clinical Impression: Person under investigation for COVID-19 URI (upper respiratory infection) Qualifiers: URI type: unspecified viral URI Qualified Code(s): J06.9 - Acute upper respiratory infection, unspecified Condition: Stable Disposition: HOME, SELF-CARE Instructions: COVID-19 Guidance for Persons Under Investigation Additional Instructions: UPPER RESPIRATORY ILLNESS: You have a viral infection of the respiratory passages -- a "cold." This common infection causes nasal congestion, drainage, and often sore throat and cough. It is highly contagious. The disease usually lasts about 10 to 14 days. There is no "cure" for the viral infection -- it must run its course. If there is a complication, such as bacterial infection in the nose, sinuses, middle ear, or bronchial tubes, antibiotics may be required. The antibiotics won't affect the virus. Drink plenty of fluids. A humidifier may help. An expectorant medication or decongestant may make you more comfortable. Use acetaminophen or ibuprofen for fever or aches. See the doctor if fever persists over two days, if there is any significant worsening of your symptoms, or if you simply fail to improve as expected. BRONCHOSPASM: You have tightness in the bronchial tubes, called bronchospasm. This often occurs with bronchial infections. Allergies, inhaled chemicals, and polluted or cold air can also provoke bronchospasm. It's more likely in patients with asthma in the family. Emergency treatment of bronchospasm may include adrenaline shots or bronchodilator aerosol. You may feel lightheaded and have a rapid pulse for an hour or two. Rest and get plenty of fluids. At home, we'll treat you with a bronchodilator inhaler. Antibiotics and corticosteroids may be required for some patients. Until you recover, avoid chemical fumes, dusts, pollens, and exercising in very cold or dry air. If you smoke, stop now!! If you develop a fever, increased wheezing, chest pain, or severe shortness of breath, you should contact the doctor immediately. INHALED BRONCHODILATORS: You have received a treatment of and/or prescription for an inhaled bronchodilator -- a medication which stimulates the airways in the lung to dilate. This improves the flow of air in asthma, bronchitis, and emphysema. These medicines have some similarity to adrenaline, and can cause similar side effects: shakiness, racing heart, and a sense of nervousness. These side effects decrease with time. Contact your doctor if these side effects are severe. Do not over-use the medicine. Too-frequent use of the inhaler may make it ineffective. Call your doctor if the inhaler is not controlling your symptoms at the prescribed doses. STEROID MEDICATION: You have been given an injection of or oral medicine of the cortisone/steroid class. This medication is used to control inflammation or all ergy. Max t is usually only given for a short period of time, until the acute process subsides. There are usually no side effects from short-term use of cortisone-like medications. Some persons feel an increased sense of well-being and are not sleepy at bedtime. Long-term use of cortisone medications is best avoided, unless required for a severe condition. If your condition does not remit, or relapses after the course of corticosteroid medication, you should consult your physician. USE OF ACETAMINOPHEN (Tylenol): Acetaminophen may be taken for pain relief or fever control. It's much safer than aspirin, offering a wider range of "safe" dosages. It is safe during . Some brand names are Tylenol, Panadol, Datril, Anacin 3, Tempra, and Liquiprin. Acetaminophen can be repeated every four hours. The following are maximum recommended dosages: >89 pounds or adults 650 mg to 900 mg Acetaminophen can be repeated every four hours. Maximum dose not to exceed 4000 mg a day. SMOKING: If you smoke, you should stop smoking. The tar and chemicals in cigarette smoke are harmful. Smoking has been shown to cause: emphysema chronic bronchitis lung cancer mouth and throat cancer stomach and pancreas cancer premature aging defects In addition, smoking increases ear and lung infections in children of smokers. Continue all of your current medication to include your pain medicines prescribed by your primary care doctor. Patient was provided with discharge information including: As a person under investigation for Covid 19, the [facility], division of public health advises you to adhere to the following guidance until your test results are reported to you. If your test result is positive, you will receive additional information from your provider and your local health department at that time. Remain at home until you are cleared by the health provider or public health authorities. Keep a log of visitors to your home, notify any visitors to your home of your isolation status. If you plan to move to a new address or leave the psychiatric hospital, notify the local health department in your County. Call your doctor or seek care if you have an urgent medical need. Before seeking medical care, call ahead to get instructions from the provider before arriving at the medical office clinic or hospital. Notify them that you are being tested for the virus that causes Covid 19 so that arrangements can be made, as necessary, to prevent transmission to others in the healthcare setting. Next, notify the local health department in your county. If a medical emergency arises and you need to call 911, inform the first respo nders that you are being tested for the virus that causes Covid 19. Next, notify the local health department in your county. Prescriptions: Prednisone [Deltasone 10 mg Tablet] 10 mg PO ASDIR PRN #21 tablet PRN Reason: Albuterol Sulfate [Proair HFA Inhalation Aerosol 8.5 gm MDI] 2 puff IH Q4H PRN #1 mdi PRN Reason: Forms: Elevated Blood Pressure, Smoking Cessation Education Referrals: SONA MCWILLIAMS MD [Primary Care Provider] - Follow up as needed
[2020-08-05 22:11] VITALS: BP 134/53
== END 2020-08-05 22:24 | disposition home or self-care (01) ==
LOC: ER 16:14
DX: J06.9 Acute upper respiratory infection, unspecified (principal); Z20.822 Contact with and (suspected) exposure to COVID-19; R06.02 Shortness of breath; R53.1 Weakness; M79.10 Myalgia, unspecified site; R19.7 Diarrhea, unspecified; I10 Essential (primary) hypertension; E11.9 Type 2 diabetes mellitus without complications; Z88.6 Allergy status to analgesic agent; Z90.49 Acquired absence of other specified parts of digestive tract
CPT/HCPCS: 94640 ×2; 99284; 96360; 36415; 85025; 87635; 80053; 83036; 87804; 71045; J7512; J7030; J7613; C9803